=== PATIENT | female | born 1990 | race Caucasian/White ===

== ENCOUNTER 2020-05-19 05:50 | Emergency (ER) | payer MEDICAID ==
[~2020-05-19] VITALS: Ht 162.6 cm; Wt 89.8 kg
[~2020-05-19 05:50] MED LIST: [UNRECOGNIZED DRUG - REMARK]
[2020-05-19 05:57] VITALS: BP 116/73
--- NOTE | 2020-05-19 05:57 | NUR ---
TO BED AMBULATORY
--- NOTE | 2020-05-19 06:03 | NUR ---
Dr. Perez examining patient.
--- NOTE | 2020-05-19 06:04 | NUR ---
See complete assessment.
[2020-05-19] MEDS ORDERED: ONDANSETRON 4 MG/2 ML VIAL ONE (06:06)
[2020-05-19] MEDS ORDERED: MORPHINE SULFATE 4 MG/ML SYR ONE (06:07)
[2020-05-19] MEDS ORDERED: MORPHINE SULFATE 4 MG/ML SYR IVP ONE (06:10)
[2020-05-19] MEDS ORDERED: ONDANSETRON 4 MG/2 ML VIAL IVP ONE (06:10)
[2020-05-19] MEDS ORDERED: NACL 0.9% 1,000 ML IV SCH (06:10)
[2020-05-19 06:27] LABS: BASOPHILS % (AUTO) 0.3 % (0.0-2.0); EOSINOPHILS # (AUTO) 0.2 K/uL (0-0.4); EOSINOPHILS % (AUTO) 1.1 % (0.0-4.0); HEMATOCRIT 43.9 % (36-48); HEMOGLOBIN 14.5 g/dL (12.0-16.0); LYMPHOCYTES % (AUTO) 14.3 % (20.5-51.1); MEAN CORPUSCULAR HEMOGLOBIN 30 pg (27-31); MEAN CORPUSCULAR HGB CONC 33 g/dL (33-37); MONOCYTES # (AUTO) 0.6 K/uL (0.8-1.0); NEUTROPHILS # (AUTO) 11.3 K/uL (1.8-7.7); NEUTROPHILS % (AUTO) 80.3 % (42.2-75.2); PLATELET COUNT (AUTO) 326 K/uL (140-450); RED BLOOD CELL COUNT(AUTO) 4.83 MIL/uL (4.20-5.40); RED CELL DISTRIBUTION WIDTH 13.6 % (11.6-13.7); WHITE BLOOD COUNT (AUTO) 14.1 K/uL (4.8-10.8)
[2020-05-19] MEDS ORDERED: KETOROLAC 30 MG/ML VIAL IVP STA ×2 (06:40→06:56)
[2020-05-19 06:45] LABS: ALBUMIN 4.1 g/dL (3.4-5.0); ANION GAP 13.6 (8-16); CARBON DIOXIDE 24.1 mmol/L (21-32); CREATININE 0.8 mg/dL (0.6-1.3); POTASSIUM 3.7 mmol/L (3.5-5.1); TOTAL BILIRUBIN 0.1 mg/dL (0.0-1.0)
--- NOTE | 2020-05-19 06:54 | NUR ---
Ultrasound at bedside.
[2020-05-19] MEDS ORDERED: ONDANSETRON 4 MG/2 ML VIAL IVP STA (07:01)
--- NOTE | 2020-05-19 07:02 | NUR ---
Patient vomited 100 ml of emesis. Notified ERMD. 4mg Zofran ordered
--- NOTE | 2020-05-19 07:15 | NUR ---
Report given to GIORGIO Self
--- NOTE | 2020-05-19 07:29 | NUR ---
PT RESTING COMFORTABLY PT IN NO PAIN, NO N/V AT THIS TIME. UPDATED PT ON PLAN OF CARE, PT VERBALIZED UNDERSTANDING. PT HAS NO NEEDS OR CONCERNS AT THIS TIME. WILL CTM.
[2020-05-19 08:50] VITALS: BP 131/68
--- NOTE | 2020-05-19 08:50 | NUR ---
Patient discharged with v/s stable, IN NAD, AAOX4. Written and verbal after care instructions given and explained. Patient alert, oriented and verbalized understanding of instructions. Ambulatory with steady gait. All questions addressed prior to discharge. ID band removed, IV ACCESS D/C'D WITH PRESSURE DRESSING APPLIED.. Patient advised to follow up with PMD. Rx of NORCO, ZOFRAN given. Patient educated on indication of medication including possible reaction and side effects. Opportunity to ask questions provided and answered. GENERAL SURGERY REFERRAL GIVEN. PT IN AGREEMENT WITH PLAN OF CARE.
--- NOTE | 2020-05-20 22:23 | NUR ---
LATE ENTRY- Normal saline 0.9% IV fluids discontinued at 0700
== END 2020-05-19 08:50 | disposition home or self-care (01) ==
LOC: MED 05:50
DX: R10.13 Epigastric pain (principal); R11.2 Nausea with vomiting, unspecified; Z98.890 Other specified postprocedural states
CPT/HCPCS: 36415; 76705; 80053; 83690; 84703; 85025; 96361; 96374; 96375; 96376; 99284; J1885; J2270; J2405

== ENCOUNTER 2021-06-07 12:38 | Emergency (ER) | payer OTHER, MEDICAID ==
[~2021-06-07] VITALS: Ht 162.6 cm; Wt 98.4 kg
[2021-06-07 12:42] VITALS: BP 138/90
--- NOTE | 2021-06-07 14:58 | NUR ---
BECCA VICTORIA EXAMINING PT
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
[2021-06-07] MEDS: IBUPROFEN 800 MG TAB PO ONE (15:14)
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
== END 2021-06-07 16:48 | disposition home or self-care (01) ==
LOC: MED 12:38
DX: M62.838 Other muscle spasm (principal); M54.50 Low back pain, unspecified; M79.632 Pain in left forearm; M25.562 Pain in left knee; Z79.899 Other long term (current) drug therapy; V43.32XA Unspecified car occupant injured in collision with other type car in nontraffic accident, initial encounter; Y93.89 Activity, other specified; Y92.411 Interstate highway as the place of occurrence of the external cause; Y99.8 Other external cause status
CPT/HCPCS: 72050; 72100; 73090; 73562; 81025; 99284

== ENCOUNTER 2022-01-02 09:19 | Emergency (ER) | payer MEDICAID ==
[~2022-01-02] VITALS: Ht 162.6 cm; Wt 102.1 kg
[2022-01-02 09:22] VITALS: BP 137/82
--- NOTE | 2022-01-02 09:28 | NUR ---
PT AMB TO BED 4.
[2022-01-02] MEDS ORDERED: KETOROLAC 60 MG/2 ML VIAL IM ONE (10:25)
--- NOTE | 2022-01-02 10:30 | NUR ---
PT C/O UPPER ABDOMINAL PAIN SINCE THIS AM, STATES HX OF GALLSTONES FEELS SIMILAR. MEDICATED FOR PAIN PER ORDER. NAD.
[2022-01-02 11:17] LABS: ALBUMIN 3.5 g/dL (3.4-5.0); CARBON DIOXIDE 27.3 mmol/L (21-32); CREATININE 0.7 mg/dL (0.6-1.3); POTASSIUM 4.3 mmol/L (3.5-5.1); TOTAL BILIRUBIN 0.2 mg/dL (0.0-1.0)
[2022-01-02 11:23] LABS: BASOPHILS % (AUTO) 0.4 % (0.0-2.0); EOSINOPHILS % (AUTO) 0.2 % (0.0-4.0); HEMATOCRIT 41.3 % (36-48); HEMOGLOBIN 13.7 g/dL (12.0-16.0); LYMPHOCYTES # (AUTO) 1.5 K/uL (2.5-16.5); LYMPHOCYTES % (AUTO) 12.2 % (20.5-51.1); MEAN CORPUSCULAR HEMOGLOBIN 29 pg (27-31); MEAN CORPUSCULAR HGB CONC 33 g/dL (33-37); MEAN CORPUSCULAR VOLUME 86.6 fL (80-94); MONOCYTES # (AUTO) 0.5 K/uL (0.8-1.0); NEUTROPHILS # (AUTO) 10.1 K/uL (1.8-7.7); NEUTROPHILS % (AUTO) 83.2 % (42.2-75.2); PLATELET COUNT (AUTO) 348 K/uL (140-450); RED BLOOD CELL COUNT(AUTO) 4.77 MIL/uL (4.20-5.40); RED CELL DISTRIBUTION WIDTH 14.2 % (11.6-13.7); WHITE BLOOD COUNT (AUTO) 12.1 K/uL (4.8-10.8)
[2022-01-02 11:33] VITALS: BP 109/67
[2022-01-02] MEDS ORDERED: ACET-8386 PO (12:11)
[2022-01-02] MEDS ORDERED: ONDA8TAB87 PO (12:11)
[2022-01-02] MEDS ORDERED: OMEP40EC24 PO (12:11)
[2022-01-02] MEDS ORDERED: IBUP-2213 PO (12:11)
--- NOTE | 2022-01-02 12:16 | NUR ---
Patient discharged with v/s stable. Written and verbal after care instructions given and explained. Patient alert, oriented and verbalized understanding of instructions. Ambulatory with steady gait. All questions addressed prior to discharge. ID band removed. Patient advised to follow up with PMD. Rx of MOTRIN, NORCO, PRILOSEC given. Patient educated on indication of medication including possible reaction and side effects. Opportunity to ask questions provided and answered.
== END 2022-01-02 12:16 | disposition home or self-care (01) ==
LOC: MED 09:19
DX: R10.13 Epigastric pain (principal); R11.2 Nausea with vomiting, unspecified; Z79.899 Other long term (current) drug therapy
CPT/HCPCS: 36415; 80053; 81002; 81025; 83690; 85025; 96372; 99283; J1885

== ENCOUNTER 2022-06-26 04:17 | Emergency (ER) | payer MEDICAID ==
[~2022-06-26] VITALS: Ht 162.6 cm; Wt 106.6 kg
[~2022-06-26 04:17] MED LIST changes: +ACET-8905 PO; +IBUP-2213 PO; +OMEP40EC24 PO; +ONDA8TAB87 PO
[2022-06-26 04:30] VITALS: BP 121/60
--- NOTE | 2022-06-26 04:33 | NUR ---
TO LOBBY A/W BED AMBULATORY
--- NOTE | 2022-06-26 04:50 | NUR ---
c/o 6/10 epigastric pain x1 day, per pt pain is intermittent. pmhx gallstones, denies any allergies.
--- NOTE | 2022-06-26 05:00 | NUR ---
Patient being evaluated by physician
[2022-06-26] MEDS ORDERED: NACL 0.9% 1,000 ML IV ONE (05:05)
[2022-06-26] MEDS ORDERED: ONDANSETRON 4 MG/2 ML VIAL IVP ONE (05:05)
[2022-06-26] MEDS ORDERED: MORPHINE SULFATE 4 MG/ML SYR IVP ONE (05:05)
--- NOTE | 2022-06-26 05:08 | NUR ---
PT TO BED #11
--- NOTE | 2022-06-26 05:37 | NUR ---
LABS AND URINE OBATAINED AND SENT TO LAB
[2022-06-26 06:13] LABS: BASOPHILS % (AUTO) 0.4 % (0.0-2.0); EOSINOPHILS # (AUTO) 0.2 K/uL (0-0.4); EOSINOPHILS % (AUTO) 1.3 % (0.0-4.0); HEMATOCRIT 39.8 % (36-48); HEMOGLOBIN 13.2 g/dL (12.0-16.0); LYMPHOCYTES # (AUTO) 1.8 K/uL (2.5-16.5); LYMPHOCYTES % (AUTO) 14.6 % (20.5-51.1); MEAN CORPUSCULAR HEMOGLOBIN 28 pg (27-31); MEAN CORPUSCULAR HGB CONC 33 g/dL (33-37); MEAN CORPUSCULAR VOLUME 85.6 fL (80-94); MONOCYTES # (AUTO) 0.7 K/uL (0.8-1.0); MONOCYTES % (AUTO) 6.1 % (1.7-9.3); NEUTROPHILS # (AUTO) 9.3 K/uL (1.8-7.7); NEUTROPHILS % (AUTO) 77.6 % (42.2-75.2); PLATELET COUNT (AUTO) 316 K/uL (140-450); RED BLOOD CELL COUNT(AUTO) 4.66 MIL/uL (4.20-5.40); RED CELL DISTRIBUTION WIDTH 13.8 % (11.6-13.7)
[2022-06-26 06:17] LABS: APPEARANCE,URINE CLEAR (CLEAR); BILIRUBIN,URINE NEGATIVE (NEGATIVE); BLOOD, URINE NEGATIVE (NEGATIVE); COLOR,URINE YELLOW (YELLOW); LEUKOCYTE ESTERASE ,URINE NEGATIVE (NEGATIVE); NITRITE, URINE NEGATIVE (NEGATIVE); UGLUCOSE NEGATIVE (NEGATIVE)
[2022-06-26 06:23] VITALS: BP 112/74
[2022-06-26 06:25] LABS: ALBUMIN 3.6 g/dL (3.4-5.0); ANION GAP 13.9 (8-16); CARBON DIOXIDE 23.2 mmol/L (21-32); CREATININE 0.7 mg/dL (0.6-1.3); POTASSIUM 4.1 mmol/L (3.5-5.1); TOTAL BILIRUBIN 0.2 mg/dL (0.0-1.0)
--- NOTE | 2022-06-26 06:40 | NUR ---
Ultrasound by bedside
[2022-06-26] MEDS ORDERED: ACET-8905 PO ×2 (09:38→09:39)
[2022-06-26] MEDS ORDERED: FAMO-90 PO (09:38)
[2022-06-26] MEDS ORDERED: ONDA-188 PO (09:38)
[2022-06-26] MEDS ORDERED: ACET-10509 PO (09:38)
== END 2022-06-26 10:14 | disposition home or self-care (01) ==
LOC: MED 04:17
DX: R10.13 Epigastric pain (principal); K80.20 Calculus of gallbladder without cholecystitis without obstruction; Z79.899 Other long term (current) drug therapy
CPT/HCPCS: 36415; 76705; 80053; 81003; 82150; 83690; 85025; 96361; 96374; 96375; 99285; J2270; J2405; J7030; Q0092